=== PATIENT | female | born 1965 | race Caucasian/White ===

== ENCOUNTER 2023-09-14 08:45 | Outpatient (RCR) | payer OTHER, SELFPAY | END 2023-12-31 08:54 | disposition home or self-care (01) | PROVIDERS: PCP Family Medicine; Visit Provider Family Medicine | DX: M79.641 Pain in right hand (principal); M79.642 Pain in left hand; Z51.89 Encounter for other specified aftercare | CPT/HCPCS: 97035; 97110; 97140; 97166; X5282 ==

== ENCOUNTER 2024-04-17 14:30 | Outpatient (RCR) | payer OTHER, SELFPAY | END 2024-06-06 10:52 | disposition home or self-care (01) | PROVIDERS: PCP Family Medicine; Visit Provider Family Medicine | DX: M79.641 Pain in right hand (principal); M79.642 Pain in left hand; M25.642 Stiffness of left hand, not elsewhere classified; M25.641 Stiffness of right hand, not elsewhere classified; Z51.89 Encounter for other specified aftercare | CPT/HCPCS: 97035; 97110; 97140; 97166; X5282 ==